=== PATIENT | female | born 2000 | race Caucasian/White ===

== ENCOUNTER 2020-07-01 12:16 | Outpatient (CLI) | payer BC, OTHER, SELFPAY ==
[2020-07-01 12:31] LABS: Basophils Percent Auto 0.7 % (0.2-1.2); Eosinophils Absolute Auto 0.1 K/mm3 (0-0.3); Eosinophils Percent Auto 1.6 % (0-4.4); Hematocrit 39.3 % (37.0-47.0); Hemoglobin 13.4 g/dL (12.0-15.0); Lymphocytes Percent Auto 42.1 % (18.3-44.2); Mean Corpuscular HGB Conc 34.1 g/dl (32-36); Mean Corpuscular Hemoglobin 28.7 pg (26-34); Mean Corpuscular Volume 84.2 fl (80-100); Mean Platelet Volume 10.4 fl (7.4-10.4); Monocytes Absolute Auto 0.5 K/mm3 (0.1-0.6); Neutrophils Absolute Auto 2.1 K/mm3 (1.3-6.7); Neutrophils Percent Auto 45.6 % (45.5-73.1); Platelet Count Result 288 k/mm3 (150-375); Red Blood Count 4.67 M/mm3 (4.2-5.4); Red Cell Distribution Width 12.5 % (11.5-14.5); White Blood Count 4.5 K/mm3 (4.5-10.0)
== END 2020-07-01 12:17 | disposition home or self-care (01) ==
PROVIDERS: Visit Provider Student in an Organized Health Care Education/Training Program
DX: T14.8XXA Other injury of unspecified body region, initial encounter (principal)
CPT/HCPCS: 36415; 85025

== ENCOUNTER 2022-06-02 15:28 | Emergency (ER) | payer BC, OTHER, SELFPAY ==
--- NOTE | 2022-06-02 15:29 | ED.FEMALEGU ---
HPI - Female Genitourinary General Chief complaint: Urogenital-Female Stated complaint: UTI SYMPTOMS Time Seen by Provider: 06/02/22 15:28 Source: patient Mode of arrival: ambulatory Limitations: no limitations History of Present Illness HPI Narrative: Ms. Culver is a 21-year-old female patient presenting to the clinic today with complaints of possible UTI. She reports she is having burning and urinary frequency that began last night. She has taken some Azo for this and this helped alleviate some of her symptoms. She denies any fever or chills. She denies any flank pain or lower abdominal pain. She denies any vaginal discharge or odors. She is currently on her menses. Related Data Allergies Allergy/AdvReac Type Severity Reaction Status Date / Time No Known Allergies Allergy Verified 06/26/20 09:36 Review of Systems Review of Systems: Pertinent positives per HPI. Patient denies any fever, chills, rash, headache, visual changes, dizziness, cough, runny nose, sore throat, shortness of breath, chest pain, palpitations, nausea, vomiting, diarrhea, constipation, abdominal pain. PMFSH Past Medical History Medical History Depression Surgical History Surgical History [place] teeth removed Family History Family History Grandparent Diabetes mellitus Cerebrovascular accident Carcinoma of colon Social History Social History Smoking status: Never smoker Second hand tobacco smoke exposure: No Alcohol intake: never Comments At the time of my signature, I reviewed and agree with the nursing past medical, surgical, social, and family history. There is no relevant family history pertinent to the patient complaint. Exam Narrative: General: Well-developed, well nourished, in no apparent distress. Head: Normocephalic, atraumatic. Cardio: Regular rate and rhythm, s1 and s2 normal, no murmur appreciated. Resp: Clear to auscultation bilaterally, no rhonchi, rales, wheezing or rubs. Abdomen: Soft, pliable, bowel sounds present in all quadrants, mild tenderness to palpation over the suprapubic area, no organomegly, no CVAT tenderness. Course Course Emergency Course: Portions of this record may have been created with voice recognition software. Level of Care: Express Care Visit Vital Signs Vital signs: Vital signs reviewed MDM - Female Genitourinary MDM Narrative Medical decision making narrative: At the time of visit patient is resting comfortably on the exam table. UA was obtained and sent for culture. Supportive measures were discussed with the patient I will go ahead and place her on a prescription for some Macrobid as she is having urinary burning and frequency. She is currently on her menses and has taken Azo so this will skew the urine dip results. Differential Diagnosis Differential diagnosis: Likely urinary tract infection and cystitis Discharge Plan Discharge Clinical Impression: Acute cystitis Patient Disposition: Home, Self-Care Condition: Stable Instructions: Antibiotic Form, Urinary Tract Infection in Women (ED) Additional Instructions: We will send urine for culture. Increase fluids and stay well hydrated Wipe front to back. May use wet wipes. Avoid tub baths If sexually active- pee before and after intercourse. Wear cotton panties Avoid tight clothing up against the genitals Follow up with your PCP in 1 week if symptoms persist. Prescriptions: New nitrofurantoin monohyd/m-cryst [Macrobid] 100 mg capsule 100 mg PO Q12H 5 Days Qty: 10 0RF Rx Instructions: must administer with a meal/food No Action Lo Loestrin Fe 1 mg-10 mcg (24)/10 mcg (2) tablet 1 tablet PO DAILY Qty: 3 3RF Follow-up/Referrals
[2022-06-02 15:53] VITALS: BP 120/83; PULSE 74; RESP 16; TEMP 37.1; O2SAT 99
== END 2022-06-02 15:55 | disposition home or self-care (01) ==
LOC: EXPGOSH 15:31
PROVIDERS: Emergency Provider Nurse Practitioner Family; PCP Pediatrics
DX: N30.00 Acute cystitis without hematuria (principal)
CPT/HCPCS: 81003; 87077; 87086; 87186; 99213; G0463

== ENCOUNTER 2022-10-22 09:58 | Emergency (ER) | payer BC, OTHER, SELFPAY ==
[2022-10-22 10:08] VITALS: BP 122/70; PULSE 94; RESP 16; TEMP 36.6; O2SAT 99
--- NOTE | 2022-10-22 10:18 | ED.URI ---
HPI - URI/Sore Throat General Chief Complaint: Upper Respiratory Infection Stated Complaint: sore throat, headache Time Seen by Provider: 10/22/22 10:18 Source: patient, RN notes reviewed and old records reviewed Mode of arrival: ambulatory Limitations: no limitations History of Present Illness HPI Narrative: 21 year old female who present to [facility] care with complaints of sore throat and headache pain for the past 3 days. Patient denies any fever, chills, no body aches, has been COVID vaccinated but has not had a flu shot. 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 MD elicited complaint: cough and sore throat Pain scale (0-10): 4 Treatments prior to arrival: ibuprofen Related Data Allergies Allergy/AdvReac Type Severity Reaction Status Date / Time No Known Allergies Allergy Verified 10/22/22 10:12 Review of Systems Review of Systems: CONSTITUTIONAL: Denies malaise, chills, sweats, or fever. EYES: Denies visual changes, redness, or discharge. ENT: Reports rhinorrhea, congestion, sinus pain,no otalgia positive for sore throat. CARDIOVASCULAR: Denies chest pain, palpitations, or edema. RESPIRATORY: Reports cough.? Denies dyspnea. GASTROINTESTINAL: Denies abdominal pain, nausea, vomiting, diarrhea SKIN: Denies rash or itching. MUSCULOSKELETAL: Denies myalgia. NEUROLOGIC: positive for headache. All systems reviewed & are unremarkable except as noted in HPI and below PMFSH Past Medical History Medical History (Updated 10/23/22 @ 00:01 by Yemi Dowling) Depression Surgical History Surgical History [employer] teeth removed Family History Family History Grandparent Diabetes mellitus Cerebrovascular accident Carcinoma of colon Social History Social History (Updated 10/24/22 @ 08:02 by Raven Laguna NP) Tobacco type: e-cigarettes/vaping Second hand tobacco smoke exposure: No Alcohol intake: current Alcohol use details: social Substance use: never Gender identity (if verbalized by the patient): Female Comments At time of signature, agree with nursing past medical, surgical, social and family history. There is no relevant family history pertinent to the presenting complaint Exam Narrative: GENERAL: Well-appearing, well-nourished, and in no acute distress. HEAD: Normocephalic EYES: PERRLA, conjunctivae clear ENT: Nares clear, turbinates edematous and erythematous, clear discharge. Mucous membranes moist. TM pearly ying with dull light reflex bilaterally; no tragal tenderness. Oropharynx erythematous without lesions. Tonsils not enlarged and without exudate, no drooling, no hoarseness, no trismus, uvula midline. NECK: Supple. No lymphadenopathy CHEST: Clear to auscultation, breath sounds equal. No wheezing, rhonchi, rales, or stridor. No respiratory distress, speaks in full sentences. HEART: Regular rate and rhythm. No murmur heard. SKIN: Warm, dry, no rash. NEURO: Alert and oriented x3. PSYCH: Normal mood and affect Course Course Emergency Course: Patient is aware of diagnosis, understands and agrees to treatment plan.? Anticipatory guidance given.? Patient agrees to follow-up as directed and is aware of reasons to seek care at the emergency department. Portions of this record may have been created with voice recognition software Level of Care: Express Care Visit Vital Signs Vital signs: Vital Signs Temperature 36.6 C 10/22/22 10:08 Pulse Rate 94 10/22/22 10:08 Respiratory Rate 16 10/22/22 10:08 Blood Pressure 122/70 10/22/22 10:08 Pulse Oximetry 99 10/22/22 10:08 Temperature 36.6 C 10/22/22 10:08 Pulse Rate 94 10/22/22 10:08 Respiratory Rate 16 10/22/22 10:08 Blood Pressure 122/70 10/22/22 10:08 Pulse Oximetry 99 10/22/22 10
== END 2022-10-22 10:43 | disposition home or self-care (01) ==
PROVIDERS: Emergency Provider Registered Nurse; PCP Nurse Practitioner Family
DX: J03.90 Acute tonsillitis, unspecified (principal); F17.209 Nicotine dependence, unspecified, with unspecified nicotine-induced disorders
CPT/HCPCS: 87081; 99213; G0463

== ENCOUNTER 2024-01-01 12:27 | Emergency (ER) | payer OTHER, SELFPAY ==
[2024-01-01 12:36] VITALS: BP 112/75; PULSE 79; RESP 16; TEMP 37.1; O2SAT 100
--- NOTE | 2024-01-01 12:40 | ED.EAR ---
HPI - Ear Problem General Chief complaint: Ear Stated complaint: Congestion;Ear pain Source: patient, RN notes reviewed and old records reviewed Mode of arrival: ambulatory Limitations: no limitations History of Present Illness HPI Narrative: 23-year-old female presents to Express Care with complaint sinus congestion, ear pressure, feels like ears need to pop, this started yesterday. Patient is not taking anything for symptoms. Patient denies any other symptoms. Related Data Home Medications Medication Instructions Recorded Confirmed ibuprofen 200 mg capsule 200 mg PO Q6H PRN 10/26/22 levonorgestrel 21 mcg/24 hours (8 1 device intrauterine ONCE 10/26/22 yrs) 52 mg intrauterine device (Mirena) Allergies Allergy/AdvReac Type Severity Reaction Status Date / Time No Known Allergies Allergy Verified 10/26/22 13:00 Review of Systems Constitutional: Constitutional: Reports no additional constitutional complaints, Denies body ache(s), Denies chills, Denies fatigue, Denies fever(s) and Denies headache(s) Eyes: Eyes: Reports no additional eye complaints and Denies blurry vision ENT: Reports system reviewed and no additional complaints, except as documented, Denies vertigo, Denies dizziness, Denies ear discharge, Reports otalgia, Denies facial pain, Denies headache(s), Reports nasal congestion, Reports nasal discharge, Denies sinus pain, Denies sinus pressure and Denies sore throat Cardiovascular: Cardiovascular: Reports no additional cardiovascular complaints, Denies chest pain, Denies chest pain at rest, Denies rapid heart rate and Denies dyspnea Respiratory: Respiratory: Reports no additional respiratory complaints, Denies chest congestion, Denies cough, Denies pain on inspiration, Denies pain with cough and Denies dyspnea Gastrointestinal: Gastrointestinal: Denies abdominal pain, Denies diarrhea, Denies nausea and Denies vomiting Integumentary/Breasts: Skin/Breast: Denies rash Neurologic: Reports system reviewed and no additional complaints, except as documented, Denies vertigo, Denies dizziness and Denies headache(s) Endocrine: Endocrine: Denies fatigue PMFSH Past Medical History Medical History (Updated 01/01/24 @ 12:45 by Yanely Mcmullen APRN) Depression Surgical History Surgical History [place] teeth removed Family History Family History Grandparent Diabetes mellitus Cerebrovascular accident Carcinoma of colon Social History Social History Smoking status: Never smoker Tobacco type: e-cigarettes/vaping Second hand tobacco smoke exposure: No Alcohol intake: current Alcohol use details: social Substance use: never Gender identity (if verbalized by the patient): Female Comments At the time of my signature, I reviewed and agree with the nursing past medical, surgical, social, and family history. There is no relevant family history pertinent to the patient complaint. Exam Const: General: cooperative, healthy appearing, no acute distress and well nourished Nutritional Appearance: well nourished Orientation/consciousness: patient oriented x3 Limitations: no limitations HENMT: Head: normal to inspection and normocephalic Ears: external ears normal, EAC's normal, mastoids normal and TM abnormal wth effusion serous bilateral Face/Nose/Sinus: normal facial exam Face and sinus: normal facial exam Mouth: Yes Normal oral and palatal mucosa present, Yes oropharynx normal and Yes moist mucous membranes Throat: posterior oropharynx normal, tonsils normal, uvula midline and no uvular edema Eyes: General: appearance normal, both eyes and all related structures Sclera: sclerae normal Pupils: Equal, round and reactive pupils present Resp: Effort & Inspection: normal respiratory effort, able to speak in complete sentences,
== END 2024-01-01 12:49 | disposition home or self-care (01) ==
PROVIDERS: Emergency Provider Registered Nurse
DX: H65.03 Acute serous otitis media, bilateral (principal)
CPT/HCPCS: 99213; G0463

== ENCOUNTER 2024-05-30 15:28 | Emergency (ER) | payer OTHER, SELFPAY ==
--- NOTE | 2024-05-30 15:39 | ED.URI ---
HPI - URI/Sore Throat General Chief Complaint: Upper Respiratory Infection Stated Complaint: SORE THROAT Time Seen by Provider: 05/30/24 15:39 History of Present Illness HPI Narrative: 23 y/o female presents with chief complaint of sore throat and bilateral ear pressure x2 days. Ears feel like popping. Denies tinnitus or ear drainage. Reports sick contacts. She denies any associated shortness of breath, chest pain, cough, or congestion, n/v/d/f/c. She has been taking Advil for relief with her sore throat. Related Data Home Medications Medication Instructions Recorded Confirmed levonorgestrel 21 mcg/24 hr (up to 1 device intrauterine ONCE 10/26/22 8 years) 52 mg intrauterine device (Mirena) Allergies Allergy/AdvReac Type Severity Reaction Status Date / Time No Known Allergies Allergy Verified 05/30/24 15:39 Review of Systems Review of Systems: CONSTITUTIONAL: Denies body aches, fever, or sweating; Reports chills EYES: Denies visual changes, redness, or discharge. ENT: Denies rhinorrhea or congestion; Reports ear pressure and sore throat CARDIOVASCULAR: Denies chest pain RESPIRATORY: Denies dyspnea. GASTROINTESTINAL: Denies abdominal pain, nausea, vomiting, or diarrhea. SKIN: Denies rash, itching, or wounds. NEUROLOGIC: Denies headache PMFSH Past Medical History Medical History (Updated 05/30/24 @ 18:14 by Jesenia Fajardo APRN) Depression Surgical History Surgical History [place] teeth removed Family History Family History Grandparent Diabetes mellitus Cerebrovascular accident Carcinoma of colon Social History Social History Smoking status: Never smoker Tobacco type: e-cigarettes/vaping Second hand tobacco smoke exposure: No Alcohol intake: current Alcohol use details: social Substance use: never Gender identity (if verbalized by the patient): Female Exam Narrative: GENERAL: well appearing EYES: Conjunctivae clear ENT: Mucous membranes moist; TMs pearly ying with normal light reflex bilaterally; no tragal tenderness; oropharynx mildly erythematous without lesions or exudates; tonsils enlarged 1+and without exudate; no drooling, hoarseness,or trismus; uvula midline; no tripod positioning, hot potato voice, or soft palate swelling NECK: Supple; no lymphadenopathy CHEST: Clear to auscultation, breath sounds equal; no respiratory distress and speaks in full sentences HEART: Regular rate and rhythm. No murmur heard. SKIN: Warm, dry, no rash. NEURO: Alert and oriented x3. Course Course Emergency Course: Patient is aware of diagnosis, understands and agrees to treatment plan. Anticipatory guidance given. Patient agrees to follow-up as directed and is aware of reasons to seek care at the emergency department. Portions of this record may have been created with voice recognition software Level of Care: Express Care Visit Vital Signs Vital signs: Vital Signs Temperature 99 F 05/30/24 15:42 Pulse Rate 98 05/30/24 15:42 Respiratory Rate 16 05/30/24 15:42 Blood Pressure 113/77 05/30/24 15:42 Pulse Oximetry 99 05/30/24 15:42 Temperature 99 F 05/30/24 15:42 Pulse Rate 98 05/30/24 15:42 Respiratory Rate 16 05/30/24 15:42 Blood Pressure 113/77 05/30/24 15:42 Pulse Oximetry 99 05/30/24 15:42 MDM - URI/Sore Throat MDM Narrative Medical decision making narrative: Discussed physical exam findings, neg Strep result reviewed with pt. Advise supportive treatments. Patient is appropriate for outpatient treatment and follow-up. Differential Diagnosis Differential diagnosis: Likely upper respiratory infection, viral infection, pharyngitis and other (strep pharyngitis) Lab Data Labs: Lab Results 05/30/24 Range/Units 15:40 POC Grp A Strep Screen Pres
[2024-05-30 15:42] VITALS: BP 113/77; PULSE 98; RESP 16; TEMP 37.2; O2SAT 99
[2024-05-30 15:52] LABS: EDSTREPNEGPOS1 Presumptive Negative
== END 2024-05-30 15:55 | disposition home or self-care (01) ==
PROVIDERS: Emergency Provider Nurse Practitioner Family; PCP Nurse Practitioner Family
DX: J02.9 Acute pharyngitis, unspecified (principal)
CPT/HCPCS: 87081; 87880; 99213; G0463